=== PATIENT | female | born 1965 | race Caucasian/White ===

== ENCOUNTER 2022-03-12 19:19 | Emergency (ER) | payer OTHER ==
--- NOTE | 2022-03-12 21:47 | NUR ---
Patient was called to be triaged but was not present in the waiting room or outisde of ER.
--- NOTE | 2022-03-12 22:30 | NUR ---
Patient was called to be triaged but was not present in the waiting room or outside of ER.
--- NOTE | 2022-03-12 23:20 | NUR ---
Patient was called to be triaged but was not present in the waiting room or outside of ER. PATIENT WAS NOT TRIAGED OR SEEN BY [facility].
== END 2022-03-12 23:20 | disposition left against medical advice (07) ==
LOC: ER 19:19
DX: Z53.21 Procedure and treatment not carried out due to patient leaving prior to being seen by health care provider (principal)